=== PATIENT | female | born 1990 | race Caucasian/White ===

== ENCOUNTER 2019-04-20 04:16 | Inpatient (IN) ==
[2019-04-20] MEDS ORDERED: OXYTOCIN 30 UNITS/500 ML BAG IV PRN ×3 (06:36→16:51)
[2019-04-20] MEDS ORDERED: PENICILLIN G POTASSIUM 6 MU in DEXTROSE 5% 250 ML IV ONE ×2 (06:40→06:45)
--- NOTE | 2019-04-20 06:46 | History & Physical Report ---
Date of Service April 20, 2019 Assessment & Plan (1) Carrier of group B Streptococcus: begin PCN G now Present on Admission?: Yes (2) Normal labor: IUP at term in labor see orders anticipate vaginal Present on Admission?: Yes History of Present Illness Primary Care Provider: NO PCP Patient is a 28 yo white female who presents at 38 + weeks in active labor. conractions are now every 3-5 minutes. Pregancy complicated by obesity. GBS (+) Allergies Allergy/AdvReac Type Severity Reaction Status Date / Time No Known Drug Allergies Allergy Verified 04/17/19 11:08 Home Medications Home Medications Medication Instructions Recorded Confirmed Type 1 tab PO DAILY 04/11/19 04/20/19 History vitamin,calcium,ixbsebjy-isqb-aneon acid tablet Patient History Family History Mother Diabetes Hypertension Father Thyroid disease Grandmother Cardiac disorder Grandmother (Paternal) Heart disease Grandmother (Maternal) Breast cancer Social History Preferred Language: Jordanian Line Technician Required: No Beliefs That Will Affect Care: None marital status: Current Living Situation: Spouse Other Information That Helps Us Care for You: No Feels Safe at Home: Yes Safety Concerns: Feels Safe At This Time Smoking Status: Never smoker Hx Alcohol Use: No Hx Substance Use: No Dental Care, Regularly: Yes Review of Systems All systems reviewed & are unremarkable except as noted in HPI & below Physical Exam Constitutional: WD/WN, vitals as above Respiratory: normal respiratory effort, lungs clear to auscultation Cardiovascular: RRR, no murmur, no edema Gastrointestinal (Abdomen): normal bowel sounds, soft, nontender, no hepatosplenomegaly Genitourinary: OB Exam Abdomen: + vertex Manual OB Exam: + cervical dilation 5 cm, + cervical effacement 100% and + station -1 OB Exam Monitor Tracing: + external FHT monitor used, + external uterine monitor used, + category I and + normal FHT variability Results & Data Vital Signs (Past 12 Hours) Vital Signs Temp Pulse Resp BP 04/20/19 04:48 76 134/82 04/20/19 04:36 98.6 F 18 04/20/19 04:32 90 141/81 H
[2019-04-20] MEDS: LACTATED RINGER'S 1,000 ML IV PRN ×2 (06:48→09:05)
[2019-04-20 06:59] LABS: Hematocrit (blood only) 38.5 % (37-47); Hemoglobin 13.6 g/dL (12.0-16.0); Mean Corpuscular Volume 89.5 fL (80-100); Mean Platelet Volume 10.5 fL (7.4-10.4); Platelet Count 202 K/uL (130-400); RDW Coefficient of Variation 13.2 % (11.5-14.5); RDW Standard Deviation 43.1 fL (36.4-46.3)
[2019-04-20 07:11] LABS: Mean Corpuscular Hgb Conc 35.3 g/dL (32-36)
[2019-04-20] MEDS ORDERED: BUPIVACAINE 0.25% 30 ML VIAL ONE (08:12)
[2019-04-20] MEDS ORDERED: ePHEDrine sulfate 50 MG/ML AMP ONE (08:13)
[2019-04-20] MEDS ORDERED: fentaNYL 2MCG/ML ROPIV 1.25MG/ML 100 ML BAG EPI ONE (08:13)
[2019-04-20] MEDS ORDERED: fentaNYL citrate 100 MCG/2 ML VIAL ONE (08:13)
--- NOTE | 2019-04-20 09:40 | Anesthesiology Consultation ---
Date of Service April 20, 2019 Assessment & Plan Chart Review Chart Review: Acceptable Risk for Surgery and Patient NOT seen in Pre Admission Testing Consults Requested none ASA ASA2 Proposed Anesthesia Anesthesia Type: Labor Epidural Risk / Benefits Reviewed With: PT / POA / Parent / Guardian, Accepts Plan and Informed Consent Obtained History Height/Weight Height: 5 ft 3 in Weight: 124.284 kg Allergies Allergy/AdvReac Type Severity Reaction Status Date / Time No Known Drug Allergies Allergy Verified 04/17/19 11:08 Medications Home Medications Medication Instructions Recorded Confirmed Last Taken 1 tab PO DAILY 04/11/19 04/20/19 04/20/19 vitamin,calcium,keoyetey-dcag-yhhcp acid tablet Active Medications Generic Name Dose Route Start Last Admin Trade Name Freq PRN Reason Stop Dose Admin Lactated Ringer's 1,000 mls @ 125 mls/hr 04/20/19 06:36 04/20/19 09:15 Lr IV 04/22/19 06:35 125 mls/hr .Q8H PRN Infusion L&D Protocol Protocol Past Medical History Medical History Gastritis History of ovarian cyst History of varicella vaccination No significant past surgical history Exercise / Class Metabolic Activity II 4-5 Yardwork/Stairs/Walk up hill Past Family History Family History Mother Diabetes Hypertension Father Thyroid disease Grandmother Cardiac disorder Grandmother (Paternal) Heart disease Grandmother (Maternal) Breast cancer Past Anesthesia History No Hx of Anesthesia Complications and No Family Hx of Anesthesia Complications History of PONV No Hx of PONV and No Hx of Motion Sickness Social History Smoking Status: Never smoker Hx Alcohol Use: No Hx Substance Use: No substance use type: does not use Physical Exam Vital Signs Last Vital Signs Temp 36.7 C 04/20/19 07:02 Pulse 106 H 04/20/19 09:37 Resp 22 04/20/19 08:48 BP 106/55 L 04/20/19 09:30 Pulse Ox 97 04/20/19 09:37 ENMT Mouth: no dentition abnormality Thyromental Distance: > or= 3.5 Finger Breadths Mallampati Class: II Neck normal visual inspection Respiratory normal respiratory effort Auscultation: lungs clear to auscultation bilaterally Cardiovascular Rate/Rhythm: regular rate and regular rhythm Psychiatric Orientation: alert Testing Laboratory Results 04/20/19 06:43
[2019-04-20] MEDS ORDERED: ePHEDrine sulfate 50 MG/ML AMP IV PRN (09:41)
[2019-04-20] MEDS ORDERED: DiphenhydrAMINE HCL 50 MG/ML VIAL IV PRN (09:41)
[2019-04-20] MEDS ORDERED: NALBUPHINE HCL INJ 10 MG/ML AMP IV PRN (09:41)
[2019-04-20] MEDS ORDERED: ONDANSETRON INJ 2 MG/ML 2 ML VIAL IV PRN (09:41)
[2019-04-20] MEDS ORDERED: NALOXONE HCL 1 MG in SODIUM CHLORIDE 0.9% 1000ML 1,000 ML IV PRN (09:41)
[2019-04-20] MEDS ORDERED: fentaNYL 2MCG/ML ROPIV 1.25MG/ML 100 ML BAG EPI PRN (09:41)
[2019-04-20] MEDS ORDERED: NALOXONE HCL 0.4 MG/1 ML VIAL/CARP IV PRN (09:41)
[2019-04-20] MEDS ORDERED: PROMETHAZINE HCL 6.25 MG in SODIUM CHLORIDE 0.9% 50 ML IV PRN (09:41)
--- NOTE | 2019-04-20 10:03 | Labor Progress Brief Note ---
Date of Service April 20, 2019 Subjective comfortable after epidural. srom after epidural. thin mec noted per nursing Assessment & Plan (1) Carrier of group B Streptococcus: pcn for treatment (2) Normal labor: Will need to augment with pitocin. Patient agreeable. Physical Exam Constitutional: WD/WN, vitals as above Gastrointestinal (Abdomen): soft, gravid Genitourinary: cx--5/100/-2 toco--ctx spaced since epidural, irregular efm--130s with mod variability, accels to 150s, no decels Results & Data Vital Signs (Past 12 Hours) Vital Signs Temp Pulse Resp BP Pulse Ox 04/20/19 09:57 118 H 100 04/20/19 09:52 93 H 100 04/20/19 09:51 101 H 108/53 L 04/20/19 09:47 96 H 98 04/20/19 09:42 103 H 97 04/20/19 09:40 97 H 103/55 L 04/20/19 09:37 106 H 97 04/20/19 09:32 98 H 98 04/20/19 09:30 36.7 C 95 H 16 106/55 L 04/20/19 09:27 100 H 97 04/20/19 09:22 106 H 98 04/20/19 09:19 110 H 115/55 L 04/20/19 09:17 104 H 98 04/20/19 09:15 98 H 18 113/56 L 04/20/19 09:12 103 H 99 04/20/19 09:11 104 H 118/70 04/20/19 09:07 94 H 108/50 L 98 04/20/19 09:03 94 H 22 134/77 04/20/19 09:02 98 H 99 04/20/19 08:59 98 H 129/82 04/20/19 08:57 104 H 100 04/20/19 08:55 96 H 129/67 04/20/19 08:52 102 H 150/86 H 100 04/20/19 08:48 90 22 153/90 H 04/20/19 07:02 36.7 C 81 18 135/80 04/20/19 04:48 76 134/82 04/20/19 04:36 37.0 C 18 04/20/19 04:32 90 141/81 H
[2019-04-20] MEDS: PENICILLIN G POTASSIUM 3 MU in DEXTROSE 5% 100 ML IV PRN ×2 (10:58→14:28)
--- NOTE | 2019-04-20 14:19 | Labor Progress Brief Note ---
Date of Service April 20, 2019 Subjective comfortable, some pressure Assessment & Plan (1) Normal labor: begin second stage. fetus category one. anticipate . Physical Exam Constitutional: WD/WN, vitals as above Genitourinary: cx--c/c/+2-3 toco--q2-3 min efm--150s with mod variability, accels to 170s, no decels Results & Data Vital Signs (Past 12 Hours) Vital Signs Temp Pulse Resp BP Pulse Ox 04/20/19 14:12 125 H 100 04/20/19 14:07 127 H 99 04/20/19 14:03 125 H 136/83 04/20/19 14:02 124 H 100 04/20/19 13:57 128 H 100 04/20/19 13:52 130 H 99 04/20/19 13:51 36.8 C 18 04/20/19 13:47 130 H 98 04/20/19 13:42 129 H 98 04/20/19 13:37 141 H 99 04/20/19 13:33 125 H 123/60 04/20/19 13:32 126 H 99 04/20/19 13:27 131 H 98 04/20/19 13:22 132 H 16 99 04/20/19 13:17 136 H 99 04/20/19 13:12 139 H 99 04/20/19 13:07 135 H 99 04/20/19 13:03 126 H 129/67 04/20/19 13:02 127 H 98 04/20/19 12:57 135 H 18 98 04/20/19 12:52 132 H 99 04/20/19 12:47 132 H 100 04/20/19 12:42 130 H 100 04/20/19 12:37 128 H 100 04/20/19 12:35 36.9 C 123 H 16 134/73 04/20/19 12:32 129 H 100 04/20/19 12:27 127 H 100 04/20/19 12:17 124 H 100 04/20/19 12:15 120 H 140/70 04/20/19 12:12 124 H 100 04/20/19 12:09 18 04/20/19 12:07 130 H 100 04/20/19 12:02 121 H 100 04/20/19 11:57 129 H 100 04/20/19 11:52 127 H 100 04/20/19 11:47 121 H 100 04/20/19 11:42 120 H 100 04/20/19 11:37 124 H 100 04/20/19 11:35 20 04/20/19 11:33 117 H 142/71 H 04/20/19 11:32 121 H 100 04/20/19 11:27 118 H 100 04/20/19 11:22 130 H 100 04/20/19 11:17 117 H 99 04/20/19 11:12 119 H 99 04/20/19 11:07 119 H 100 04/20/19 11:03 36.8 C 112 H 18 123/63 04/20/19 11:02 110 H 99 04/20/19 10:57 107 H 97 04/20/19 10:52 104 H 99 04/20/19 10:47 106 H 99 04/20/19 10:42 110 H 100 04/20/19 10:37 112 H 99 04/20/19 10:33 109 H 18 114/55 L 04/20/19 10:32 109 H 99 04/20/19 10:27 111 H 98 04/20/19 10:22 91 H 99 04/20/19 10:17 104 H 99 04/20/19 10:12 113 H 100 04/20/19 10:07 104 H 100 04/20/19 10:02 99 H 100 04/20/19 10:00 108 H 16 108/55 L 04/20/19 09:57 118 H 100 04/20/19 09:52 93 H 100 04/20/19 09:51 101 H 20 108/53 L 04/20/19 09:47 96 H 98 04/20/19 09:42 103 H 97 04/20/19 09:40 97 H 18 103/55 L 04/20/19 09:37 106 H 97 04/20/19 09:32 98 H 98 04/20/19 09:30 36.7 C 95 H 16 106/55 L 04/20/19 09:27 100 H 97 04/20/19 09:22 106 H 98 04/20/19 09:20 20 04/20/19 09:19 110 H 115/55 L 04/20/19 09:17 104 H 98 04/20/19 09:15 98 H 18 113/56 L 04/20/19 09:12 103 H 99 04/20/19 09:11 104 H 118/70 04/20/19 09:10 18 04/20/19 09:07 94 H 108/50 L 98 04/20/19 09:03 94 H 22 134/77 04/20/19 09:02 98 H 99 04/20/19 08:59 98 H 22 129/82 04/20/19 08:57 104 H 100 04/20/19 08:55 96 H 129/67 04/20/19 08:52 102 H 150/86 H 100 04/20/19 08:48 90 22 153/90 H 04/20/19 07:02 36.7 C 81 18 135/80 04/20/19 04:48 76 134/82 04/20/19 04:36 37.0 C 18 04/20/19 04:32 90 141/81 H
[2019-04-20] MEDS ORDERED: OXYCODONE/ACETAMINOPHEN 5mg/325mg TAB PO PRN (15:46)
[2019-04-20] MEDS ORDERED: ACETAMINOPHEN 325 MG TAB PO PRN (15:46)
--- NOTE | 2019-04-20 15:50 | Delivery Summary ---
Vaginal Delivery Summary Date of Service April 20, 2019 Vaginal Delivery Summary Pre-operative Diagnosis: at 38 weeks, active labor Post-operative Diagnosis: same Procedure: epidural, pitocin augmentation, , second degree lac with repair EBL: 400cc Aesthesia: epidural Procedure: The patient pushed for a little less than one hour to deliver a viable female in jackie position. the rest of the was then delivered without difficulty. The nose and mouth were bulb suctioned and the was placed in the maternal abdomen for drying and attention. Cord was clamped and cut at one minute of life. Cord blood and segment obtained. Placenta delive red s/i/3vc. Cervix/sulci/rectum intact. A second degree perineal laceration was repaired in the normal standard fashion. Hemostasis obtained with dilute pitocin and fundal massage. Apgars were 8/9. Mother and baby doing well at the end of the delivery.
[2019-04-20] MEDS ORDERED: BENZOCAINE 20% AER SPR 82.5 GM CAN EXT PRN (16:51)
[2019-04-20] MEDS ORDERED: BISACODYL 10 MG SUPP PR PRN (16:51)
[2019-04-20] MEDS ORDERED: DIPHTHERIA/TETANUS/PERTUSSIS 0.5 ML SYR/VIAL IM ONE (16:51)
[2019-04-20] MEDS ORDERED: SUPERCREAM 0.870% 15 GM JAR EXT PRN (16:51)
[2019-04-20] MEDS ORDERED: HYDROCORTISONE ACETATE 25 MG SUPP PR PRN (16:51)
[2019-04-20] MEDS: IBUPROFEN 600 MG TAB PO PRN (17:27)
--- NOTE | 2019-04-20 19:03 | Anesthesia Procedure Note ---
Date of Service April 20, 2019 Anesthesia Post Epidural Note Vital Signs Vital Signs: Temp Pulse Resp BP Pulse Ox 37 C 120 H 20 123/82 97 04/20/19 18:30 04/20/19 18:30 04/20/19 18:30 04/20/19 18:30 04/20/19 18:30 Notes Mental Status: alert / awake / arousable and participated in evaluation Patient Amnestic to Procedure: No Nausea / Vomiting: adequately controlled Pain: adequately controlled Airway Patency, RR, SpO2: stable & adequate BP & HR: stable & adequate Hydration State: stable & adequate Neuraxial Anesthesia: was administered and sensory block is resolving Anesthetic Complications: no major complications apparent and Pt Satisfied with anesthetic care Epidural: Removed without complications and With tip intact
[2019-04-20] MEDS: DOCUSATE SODIUM 100 MG CAP PO SCH (22:08)
[2019-04-21] MEDS: IBUPROFEN 600 MG TAB PO PRN ×2 (03:25→16:19)
[2019-04-21 07:52] LABS: Hematocrit (blood only) 31.1 % (37-47); Hemoglobin 10.8 g/dL (12.0-16.0)
--- NOTE | 2019-04-21 07:54 | Obstetrical Progress Note ---
Date of Service April 21, 2019 Assessment & Plan (1) Vaginal delivery: Doing well. Routine care. Day #:: 1 Subjective Ambulation: ambulating normally Voiding: no voiding problems Passing Gas:: Yes Diet Tolerance:: regular diet Lochia:: Small Feeding Type:: breast feeding Physical Exam Constitutional WD/WN, vitals as above Cardiovascular Extremities: + edema (trace); no calf tenderness Gastrointestinal (Abdomen) Inspection/Auscultation: abdomen not distended Percussion/Palpation: abdomen soft; abdomen nontender ff/nt at u Psychiatric A+Ox3, euthymic affect Results & Data Vital Signs (Past 12 Hours) Vital Signs Temp Pulse Pulse Resp BP Pulse Ox 04/21/19 04:10 36.5 C 85 18 117/81 04/20/19 23:25 36.6 C 99 H 18 134/85 04/20/19 23:08 36.6 C 94 H 20 95/66 L 97 04/20/19 20:50 36.9 C 111 H 17 112/75 97
[2019-04-21] MEDS: PRENATAL VITAMIN 1 TAB PO SCH (07:58)
[2019-04-21] MEDS: DOCUSATE SODIUM 100 MG CAP PO SCH ×2 (07:58→20:47)
[2019-04-21] MEDS ORDERED: BISACODYL 5 MG TABEC PO SCH (20:00)
[2019-04-22] MEDS: IBUPROFEN 600 MG TAB PO PRN ×3 (00:41→15:52)
--- NOTE | 2019-04-22 07:53 | Obstetrical Progress Note ---
Date of Service April 22, 2019 Assessment & Plan (1) Carrier of group B Streptococcus: (2) Encounter for care and examination after delivery: PPD2 after on 04/20. complicated by GBS+ status. Ambulating well, moving bowels, tolerating oral diet. Cramping 4/10 with movement, controlled with motrin and tylenol. Discussed discharge instructions, discharge later today. (3) Vaginal delivery: Subjective Ambulation: ambulating normally Voiding: no voiding problems Passing Gas:: Yes Diet Tolerance:: regular diet Lochia:: Small Feeding Type:: breast feeding Current Pain Level(1-10): 4 Passing gas, has had small BM. Constitutional: + fatigue; no fever and no chills Respiratory: no cough and no dyspnea No shortness of breath Cardiovascular: no chest pain, no syncope, no edema and no calf pain Breast: no breast pain Gastrointestinal: + cramping; no abdominal pain, no nausea, no vomiting, no constipation and no diarrhea/loose stools Genitourinary (female): no dysuria and no difficulty urinating Neurologic: no headache(s) Physical Exam Constitutional well developed and well nourished Respiratory normal respiratory effort; no respiratory distress, no labored breathing and no cough Auscultation: no crackles, no rales, no rhonchi and no wheezes Cardiovascular Rate/Rhythm: regular rate and regular rhythm Heart Sounds: no gallop, no murmur and no cardiac rub Extremities: + pedal edema Gastrointestinal (Abdomen) Inspection/Auscultation: + abdomen distended and normal bowel sounds Percussion/Palpation: + abdomen tender and abdomen soft; no guarding Genitourinary Uterus firm some tenderness to palpation. Results & Data Vital Signs (Past 12 Hours) Vital Signs Temp Pulse Resp BP Pulse Ox 04/22/19 03:48 36.7 C 90 20 118/78 97 04/22/19 00:35 36.7 C 84 16 115/78 04/21/19 20:20 36.7 C 94 H 18 111/74
[2019-04-22] MEDS: PRENATAL VITAMIN 1 TAB PO SCH (08:43)
[2019-04-22] MEDS: DOCUSATE SODIUM 100 MG CAP PO SCH (08:43)
== END 2019-04-22 18:45 | disposition home or self-care (01) | DRG 806 ==
LOC: OPB 04:16 → 4S1 04:17 → 4S2 18:43
DX: O99.824 Streptococcus B carrier state complicating childbirth; Z68.42 Body mass index [BMI] 45.0-49.9, adult; Z37.0 Single live birth; E66.9 Obesity, unspecified; Z3A.38 38 weeks gestation of pregnancy; O70.1 Second degree perineal laceration during delivery; O99.214 Obesity complicating childbirth

== ENCOUNTER 2023-07-19 10:12 | Inpatient (IN) ==
[2023-07-19] MEDS ORDERED: LIDOCAINE 1% LOCAL 20 ML VIAL INFIL PRN (10:14)
[2023-07-19] MEDS ORDERED: LACTATED RINGER'S 1,000 ML IV PRN (10:14)
[2023-07-19] MEDS ORDERED: OXYTOCIN 30 UNITS/500 ML BAG IV PRN ×2 (10:14→13:11)
--- NOTE | 2023-07-19 10:17 | History & Physical Report ---
Date of Service July 19, 2023 Assessment & Plan (1) Obesity affecting : (2) Group beta Strep positive: (3) Gestational diabetes: Plan admit to labor and delivery. expectant management. fetus reassuring. anticipate . History of Present Illness Chief Complaint: contractions Primary Care Provider: Jaylan Chung, TONYA, MARC Patient is a 32yowf with iup at 38 4/7 weeks who notes contractions since 4am, now q 2-3min, and more painful. no lof/vb. Good fm. and Delivery Plans Obesity (BMI 40 and higher @ beginning of ) *Growth US @ 32wks *Weekly NSTs @ 34wks *BMI 40 or greater offer detailed/level II anatomy at [facility] (03[place]12[place] [facility] [place] for imcomplete heart views (06/08/23 [place] [facility] [place]) *BMI 40 or above offer delivery by EDC. GBS positive by urine *Treat in labor Gestational Diabetes Monthly growth u/s's OB Labs: Blood Type A Positive 12/16/22 Antibody Screen NEGATIVE 12/16/22 Hemoglobin 13.0 g/dl (12.0-16.0) 07/06/23 Hematocrit 36.6 % (37.0-47.0) L 07/06/23 Mean Corpuscular Volume 87.6 fL (80.0-100.0) 07/06/23 Platelet Count 182 K/uL (130-400) 07/06/23 Rubella IgG Antibody Immune (Immune) 12/16/22 Rapid Plasma Reagin Nonreactive (Nonreactive) 12/16/22 Hepatitis B Surface Antigen Neg (Neg) 09/22/18 Hepatitis B Surface Antigen. NON-REACTIVE (NON-REACTIVE) 12/16/22 Hepatitis C Antibody (EIA) NON-REACTIVE (NON-REACTIVE) 12/16/22 HIV (1&2) Ab and P24 Ag, 4th Gener Neg (Neg) 09/22/18 HIV (1&2) Ag and Ab Confirmation NON-REACTIVE (NON-REACTIVE) 12/16/22 Glucose 1 Hour 50 gm Load 159 mg/dl (70-130) H 02/10/23 OB Optional Labs: Chlamydia trachomatis RNA Not Detected (NotDetected) 12/16/22 Neisseria gonorrhoeae RNA Not Detected (NotDetected) 12/16/22 Thyroid Stimulating Hormone (TSH) 2.330 uIu/ml (0.300-4.500) 08/05/20 Labs Reviewed: cfDNA declined smp cf/sma declines smp Allergies Allergy/AdvReac Type Severity Reaction Status Date / Time No Known Drug Allergies Allergy Verified 07/16/23 13:25 Home Medications Medication Instructions Recorded Confirmed Type prenat.vits,megan,rru-npwk-kfwif 1 tab PO DAILY 12/07/22 07/16/23 History blood sugar diagnostic #100 ea 05/27/23 07/16/23 Rx blood-glucose meter (OneTouch #1 ea 05/27/23 07/16/23 Rx Ultra2 Meter) lancets 30 gauge (OneTouch Delica #100 ea 05/27/23 07/16/23 Rx Plus Lancet) acetone (urine) test (Ketone Urine #50 ea 05/31/23 07/16/23 Rx Test strips) Patient History Medical History Vaginal delivery History of ovarian cyst Carrier of group B Streptococcus Surgical History No significant past surgical history Family History Mother Diabetes Hypertension Father Thyroid disease Grandmother (Paternal) Heart disease Cardiac disorder Grandmother (Maternal) Breast cancer Denies family history of Ovarian cancer Prostate cancer Myocardial infarction Colorectal cancer Social History Smoking Status: Never smoker Second Hand Exposure: No; Do You Dip or Chew Tobacco: No; Hx Alcohol Use: No Hx Substance Use: No Preferred Language: Samoan Communication Ability: Effective Visual Impairment: No Limitations Hearing Ability: Normal Machine Turner Required: No Beliefs That Will Affect Care: None marital status: marital status details: Jose Bucio ( [phone] Current Living Situation: Spouse and Family Current Living Situation Comment: lives with spouse, and daughter current occupational status: other current occupation: RECREATION INSTRUCTOR Feels Safe at Home: Yes Childhood Exposure to Second-Hand Smoke: No Diet: regular Dental Care, Regularly: Yes Physical Activity Frequency: 5-6 Times per Week Seatbelt Use: always Sunscreen Use: Yes Assistive Devices: Glasses OB History Past Pregnancies Del. Date GA wks Lbr Lgth wt Sex Type del Anes Place Del Prov ? Comment 04/20/19 38 6lb 6.1oz F Epi dural [facility] [place] Physical Exam Constitutional: WD/WN, vitals as above Gastrointestinal (Abdomen): obese, soft, nt, gravid Psychiatric: A+Ox3, euthymic affect Genitourinary: cx--4-5/90/-2 toco-- efm-- Coding Level of Care Code None Diagnoses Obesity affecting O99.210 Group beta Strep positive B95.1 Gestational diabetes O24.419
[2023-07-19] MEDS ORDERED: PENICILLIN G POTASSIUM 6 MU in DEXTROSE 5% 250 ML IV STA (10:21)
[2023-07-19 10:39] LABS: Hematocrit (blood only) 38.6 % (37.0-47.0); Hemoglobin 13.7 g/dl (12.0-16.0); Mean Corpuscular Hemoglobin 31.1 pg (25.0-34.0); Mean Corpuscular Hgb Conc 35.5 g/dL (32.0-36.0); Mean Corpuscular Volume 87.5 fL (80.0-100.0); Mean Platelet Volume 9.4 fL (9.4-12.4); Platelet Count 296 K/uL (130-400); RDW Coefficient of Variation 12.8 % (11.5-14.5); RDW Standard Deviation 40.3 fL (36.4-46.3); Red Blood Count 4.41 M/uL (4.20-5.40); White Blood Count 17.61 K/ul (4.8-10.8)
[2023-07-19] MEDS ORDERED: ePHEDrine sulfate 50 MG/ML AMP ONE (11:18)
[2023-07-19] MEDS ORDERED: fentaNYL citrate PF 100 MCG/2 ML VIAL ONE (11:18)
[2023-07-19] MEDS ORDERED: BUPIVACAINE 0.25% PF 30 ML VIAL ONE (11:19)
[2023-07-19] MEDS ORDERED: SODIUM CHLORIDE 0.9% PF INJ 10 ML VIAL ONE (11:19)
[2023-07-19] MEDS ORDERED: LIDOCAINE 2%/EPINEPHRINE 1:200,000 20 ML PF ONE (11:19)
[2023-07-19] MEDS ORDERED: fentANYL 2 MCG/ML BUPIVacaine 0.125%-NSS 100ML BAG ONE (11:19)
--- NOTE | 2023-07-19 11:20 | Anesthesiology Consultation ---
Date of Service July 19, 2023 Assessment & Plan (1) Encounter for pre-operative examination: Chart Review Chart Review: Patient NOT seen in Pre Admission Testing and Acceptable Risk for Labor Epidural Consults Requested none History Allergies Allergy/AdvReac Type Severity Reaction Status Date / Time No Known Drug Allergies Allergy Unknown Verified 07/19/23 10:54 Medications Home Medications Medication Instructions Recorded Confirmed Last Taken prenat.vits,megan,agy-lhxn-nkosh 1 tab PO DAILY 12/07/22 07/19/23 07/19/23 08:00 blood sugar diagnostic #100 ea 05/27/23 07/16/23 Unknown blood-glucose meter (OneTouch #1 ea 05/27/23 07/16/23 Unknown Ultra2 Meter) lancets 30 gauge (OneTouch Delica #100 ea 05/27/23 07/16/23 Unknown Plus Lancet) acetone (urine) test (Ketone Urine #50 ea 05/31/23 07/16/23 Unknown Test strips) Probiotic 1 tab PO DAILY 07/19/23 07/19/23 07/19/23 08:00 Active Medications Generic Name Dose Route Start Last Admin Trade Name Freq PRN Reason Stop Dose Admin Lactated Ringer's 1,000 mls @ 125 mls/hr 07/19/23 10:14 07/19/23 10:45 Lr IV 07/21/23 10:13 999 mls/hr .Q8H PRN Infusion L&D Protocol Protocol Past Medical History Medical History (Updated 07/19/23 @ 11:19 by Juanjo Gibson MD) Encounter for pre-operative examination Gestational diabetes mellitus (GDM) affecting Diet controlled. Vaginal delivery History of ovarian cyst Carrier of group B Streptococcus Exercise / Class Metabolic Activity II 4-5 Yardwork/Stairs/Walk up hill Past Family History Family History Mother Diabetes Hypertension Father Thyroid disease Grandmother (Paternal) Heart disease Cardiac disorder Grandmother (Maternal) Breast cancer Denies family history of Ovarian cancer Prostate cancer Myocardial infarction Colorectal cancer Past Surgical History Surgical History No significant past surgical history Past Anesthesia History No Hx of Anesthesia Complications and No Family Hx of Anesthesia Complications Social History Smoking Status: Never smoker Do You Dip or Chew Tobacco: No Hx Alcohol Use: No Hx Substance Use: No substance use type: does not use Physical Exam Vital Signs Last Vital Signs Temp 36.6 C 07/19/23 10:57 Pulse 96 H 07/19/23 12:02 Resp 20 07/19/23 10:57 BP 182/85 H 07/19/23 12:02 Testing Laboratory Results 07/19/23 10:22 07/19/23 07/19/23 11:41 10:24 POC Glucose 110 H 100 H
[2023-07-19] MEDS ORDERED: fentANYL 2 MCG/ML BUPIVacaine 0.125%-NSS 100ML BAG EPI PRN (11:42)
[2023-07-19] MEDS ORDERED: NALBUPHINE HCL INJ 10 MG/ML AMP IV PRN (11:42)
[2023-07-19] MEDS ORDERED: BUPIVACAINE 0.25% PF 30 ML VIAL EPI STA (11:42)
[2023-07-19] MEDS ORDERED: diphenhydrAMINE 50 MG/ML VIAL IV PRN (11:42)
[2023-07-19] MEDS ORDERED: fentaNYL citrate PF 100 MCG/2 ML VIAL EPI PRN (11:42)
[2023-07-19] MEDS ORDERED: SODIUM CHLORIDE 0.9% PF INJ 10 ML VIAL EPI STA (11:42)
[2023-07-19] MEDS ORDERED: ROPIVACAINE 0.5% PF 5 MG/ML 20 ML VIAL EPI PRN (11:42)
[2023-07-19] MEDS ORDERED: LIDOCAINE 2%/EPINEPHRINE 1:200,000 20 ML PF EPI STA (11:42)
[2023-07-19] MEDS ORDERED: SODIUM CHLORIDE 0.9% PF INJ 10 ML VIAL EPI PRN (11:42)
[2023-07-19] MEDS ORDERED: fentaNYL citrate PF 100 MCG/2 ML VIAL EPI STA (11:42)
[2023-07-19] MEDS ORDERED: BUPIVACAINE 0.25% PF 30 ML VIAL EPI PRN (11:42)
[2023-07-19] MEDS ORDERED: ePHEDrine sulfate 50 MG/ML AMP IV PRN (11:42)
[2023-07-19] MEDS ORDERED: LIDOCAINE 2% MPF LOCAL 5 ML VIAL EPI PRN (11:42)
[2023-07-19] MEDS ORDERED: NALOXONE HCL 0.4 MG/1 ML VIAL/CARP IV PRN (11:42)
[2023-07-19] MEDS ORDERED: NALOXONE HCL 1 MG in SODIUM CHLORIDE 0.9% 1,000 ML IV PRN (11:42)
[2023-07-19] MEDS ORDERED: ONDANSETRON INJ 2 MG/ML 2 ML VIAL IV PRN (11:42)
--- NOTE | 2023-07-19 12:37 | Delivery Summary ---
Vaginal Delivery Summary Date of Service July 19, 2023 Vaginal Delivery Summary and 2nd Degree LAC Pre-operative Diagnosis: at 38 weeks active labor gdm obesity Post-operative Diagnosis: same Procedure: epidural manual extraction of the placenta second degree laceration and repair. EBL: 350cc Anesthesia: epidural Procedure: The patient presented to labor and delivery in early active labor. She became uncomfortable and requested epidural. After laying back down after epidual, she noted urge to push. Checked and c/c +1. The patient pushed for two contractions to deliver a viable female in jackie position. The was then delivered without difficulty. The baby was vigorous. The nose and mouth were bulb suctioned and the infant was placed in the maternal abdomen for drying and attention. Cord was clamped and cut at one minute of life. Cord blood and segment obtained. Placenta delivered by manual extraction after the cord was avulsed in trying to deliver it. Required cad operator to place hand into fundus x 3 to removed, but removed intact. Cervix/sulci/rectum were intact. A second degree perineal laceration was repaired in the normal standard fashion. Hemostasis obtained with dilute pitocin and fundal massage. Apgars were pending at the time of this note.. Mother and baby doing well at the end of the delivery. [facility] Vaginal Delivery Charge Delivery Type Details: and 2nd Degree LAC
[2023-07-19] MEDS ORDERED: DIPHTHERIA/TETANUS/PERTUSSIS Vaccine (Tdap, Age 7+yrs) 0.5mL SYR/VL IM ONE (13:11)
[2023-07-19] MEDS ORDERED: oxyCODONE/ACETAMINOPHEN 5mg/325mg TAB PO PRN (13:11)
[2023-07-19] MEDS ORDERED: BENZOCAINE 20% SPRY 85 APPLN/85 GM CAN EXT PRN (13:11)
[2023-07-19] MEDS ORDERED: bisacodyL 10 MG SUPP PR PRN (13:11)
[2023-07-19] MEDS ORDERED: HYDROCORTISONE ACETATE 25 MG SUPP PR PRN (13:11)
[2023-07-19] MEDS ORDERED: ACETAMINOPHEN 325 MG TAB PO PRN (13:11)
[2023-07-19] MEDS ORDERED: PENICILLIN G POTASSIUM 3 MU in DEXTROSE 5% 100 ML IV PRN (13:14)
[2023-07-19] MEDS: ceFAZolin 1000MG 1,000 MG/7.5 ML SYR IV SCH ×2 (13:54→21:23)
--- NOTE | 2023-07-19 14:46 | Anesthesia Procedure Note ---
Date of Service July 19, 2023 Anesthesia Post Epidural Note Vital Signs Vital Signs: Temp Pulse Resp BP Pulse Ox 36.6 C 126 H 16 119/62 98 07/19/23 10:57 07/19/23 14:18 07/19/23 13:30 07/19/23 14:18 07/19/23 12:40 Notes Mental Status: alert / awake / arousable and participated in evaluation Patient Amnestic to Procedure: No Nausea / Vomiting: adequately controlled Pain: adequately controlled Airway Patency, RR, SpO2: stable & adequate BP & HR: stable & adequate Hydration State: stable & adequate Neuraxial Anesthesia: was administered and sensory block is resolving Anesthetic Complications: no major complications apparent and Pt Satisfied with anesthetic care Epidural: Removed without complications and With tip intact
[2023-07-19] MEDS: IBUPROFEN 600 MG TAB PO PRN (19:57)
[2023-07-19] MEDS: DOCUSATE SODIUM 100 MG CAP PO SCH (19:57)
[2023-07-20] MEDS: IBUPROFEN 600 MG TAB PO PRN ×4 (01:32→19:40)
[2023-07-20 06:38] LABS: Hematocrit (blood only) 32.4 % (37.0-47.0); Hemoglobin 11.1 g/dl (12.0-16.0)
--- NOTE | 2023-07-20 06:39 | Obstetrical Progress Note ---
Date of Service <Jo Montesinos MD - Last Filed: 07/20/23 07:22> July 20, 2023 Assessment & Plan <Jo Montesinos MD - Last Filed: 07/20/23 07:22> (1) Encounter for assessment: Plan Patient with the above mentioned history and findings was evaluated at bedside and found awake, alert, oriented in all spheres, afebrile, and in no acute distress. Vital signs showed no fever and blood pressures remained stable today. BP was elevated yesterday showing one measurement at 151/117, which has not recurred. Her blood type is A positive and today's hemoglobin is adequate at 11.1 g/dL. She is GBS positive treated intrapartum, and rubella immune. Overall, patient is doing well clinically. She is meeting all the desired milestones except for having passed gas. Will continue pp care. All questions were answered. <Angela Moon MD, FACOG - Last Filed: 07/20/23 07:23> (1) Encounter for assessment: Subjective <Jo Montesinos MD - Last Filed: 07/20/23 07:22> Courtney is a 32 y/o female who is now PPD # 1 following at 38 4/7 weeks. Reports feeling well overall this morning. Refers mild abdominal cramping & 3/10 pain well managed on analgesics. Voiding spontaneously. Has not yet passed flatus or had a bowel movement. Tolerating meals overnight and able to ambulate some. Some persistent lochia with some improvement this morning. . Constitutional: no fever, no chills or no sweats Denies shortness of breath or difficulty breathing Cardiovascular: no chest pain or no palpitations Breast: no breast pain Genitourinary (female): no dysuria Neurologic: no headache(s) Denies changes in vision Physical Exam <Jo Montesinos MD - Last Filed: 07/20/23 07:22> General: Alert. Oriented to person, time, and place. Afebrile. No acute distress. Eyes: pupils equal and reactive to light bilaterally, extraocular movements intact. Cardiac: Regular rate and rhythm, no murmurs/rubs/gallops. Respiratory: Clear to auscultation bilaterally. No increased work of breathing. Symmetrical chest rise. No respiratory distress. Abdomen: Soft, nontender, nondistended. Bowel sounds present. Uterus: Uterine fundus firm, mildly tender, and palpable at umbilicus. Lower Extremities: No lower extremity edema or swelling. No deep calf pain. Catrachita's negative bilaterally. Psych: Euthymic affect. Mood and affect congruence. Regular speech rate and content. Results & Data <Jo Montesinos MD - Last Filed: 07/20/23 07:22> Vital Signs (Past 12 Hours) Vital Signs Temp Pulse Resp BP Pulse Ox O2 Del Method 07/20/23 04:40 36.7 C 80 18 118/78 98 Room Air 07/20/23 00:25 37 C 96 H 18 124/77 95 Room Air 07/19/23 19:25 36.5 C 101 H 20 129/79 97 Room Air Supervising Physician <Angela Moon MD, FACOG - Last Filed: 07/20/23 07:23> Co-Signing Physician Notes Resident Physician Supervision Note: I interviewed and examined the patient. Discussed with Dr. Montesinos and agree with findings and plan as documented in the note. Any exceptions or clarifications are listed here: Patient doing well. Baby was sga so likely d/c tomorrow as baby will likely stay for evaluation, continued breast feeding and weight management. Documented By: Angela Moon MD, FACOG Resident Activity Tracking <Jo Montesinos MD - Last Filed: 07/20/23 07:22> Resident Involvement: Resident Care Provided Care Provided: OB Delivery
[2023-07-20] MEDS: DOCUSATE SODIUM 100 MG CAP PO SCH ×2 (08:14→19:40)
[2023-07-20] MEDS: PRENATAL VITAMIN 1 TAB PO SCH (08:14)
[2023-07-20] MEDS ORDERED: bisacodyL 5 MG TABEC PO SCH (20:00)
--- NOTE | 2023-07-21 07:35 | Obstetrical Progress Note ---
Date of Service <Jo Montesinos MD - Last Filed: 07/21/23 07:35> July 21, 2023 Assessment & Plan <Jo Montesinos MD - Last Filed: 07/21/23 07:35> (1) Encounter for assessment: Plan Patient with the above mentioned history and findings was evaluated at bedside and found awake, alert, oriented in all spheres, afebrile, and in no acute distress. Vital signs showed no fever and blood pressures remained stable today. Her blood type is A positive and most recent hemoglobin is adequate at 11.1 g/dL. She is GBS positive treated intrapartum, and rubella immune. Overall, patient is doing well clinically. Will discharge today. She was counseled to call the OB office to schedule a f/u appointment in 6 weeks for her pp evaluation. Discharge instructions discussed. All questions were answered. <Maria Chavarria MD, FACOG - Last Filed: 07/21/23 07:37> (1) Encounter for assessment: Subjective <Jo Montesinos MD - Last Filed: 07/21/23 07:35> Courtney is a 32 y/o female who is now PPD # 2 following at 38 4/7 weeks. Reports feeling well overall this morning. Refers mild abdominal cramping & 2/10 pain well managed on analgesics. Voiding spontaneously. Has passed flatus and had a bowel movement. Tolerating meals overnight and able to ambulate some. Some persistent lochia with some improvement this morning. . Constitutional: no fever, no chills or no sweats Denies shortness of breath or difficulty breathing Cardiovascular: no chest pain or no palpitations Breast: no breast pain Genitourinary (female): no dysuria Neurologic: no headache(s) Denies changes in vision Physical Exam <Jo Montesinos MD - Last Filed: 07/21/23 07:35> General: Alert. Oriented to person, time, and place. Afebrile. No acute distress. Eyes: pupils equal and reactive to light bilaterally, extraocular movements intact. Cardiac: Regular rate and rhythm, no murmurs/rubs/gallops. Respiratory: Clear to auscultation bilaterally. No increased work of breathing. Symmetrical chest rise. No respiratory distress. Abdomen: Soft, nontender, nondistended. Bowel sounds present. Uterus: Uterine fundus firm, mildly tender, and palpable at umbilicus. Lower Extremities: No lower extremity edema or swelling. No deep calf pain. Catrachita's negative bilaterally. Psych: Euthymic affect. Mood and affect congruence. Regular speech rate and content. Results & Data <Jo Montesinos MD - Last Filed: 07/21/23 07:35> Vital Signs (Past 12 Hours) Vital Signs Temp Pulse Resp BP Pulse Ox O2 Del Method 07/20/23 22:45 36.6 C 93 H 16 115/73 95 Room Air Supervising Physician <Maria Chavarria MD, FACOG - Last Filed: 07/21/23 07:37> Co-Signing Physician Notes Resident Physician Supervision Note: I interviewed and examined the patient. Discussed with Dr. Montesinos and agree with findings and plan as documented in the note. Any exceptions or clarifications are listed here: [None] Documented By: Maria Chavarria MD, FACOG Resident Activity Tracking <Jo Montesinos MD - Last Filed: 07/21/23 07:35> Resident Involvement: Resident Care Provided Care Provided: OB Delivery
[2023-07-21] MEDS: PRENATAL VITAMIN 1 TAB PO SCH (09:09)
[2023-07-21] MEDS: DOCUSATE SODIUM 100 MG CAP PO SCH (09:09)
[2023-07-21 09:52] VITALS: BP 114/75; PULSE 90; RESP 20; TEMP 98.6; O2SAT 97
[2023-07-21] MEDS: IBUPROFEN 600 MG TAB PO PRN (10:45)
== END 2023-07-21 11:50 | disposition home or self-care (01) | DRG 807 ==
LOC: OPB 10:12 → 4S1 10:14 → 4E2 15:30
DX: O70.1 Second degree perineal laceration during delivery; Z3A.38 38 weeks gestation of pregnancy; O24.420 Gestational diabetes mellitus in childbirth, diet controlled; O99.824 Streptococcus B carrier state complicating childbirth; O99.214 Obesity complicating childbirth; Z37.0 Single live birth